=== PATIENT | female | born 1960 | race Two or more races ===

== ENCOUNTER 2023-04-13 06:30 | Day surgery (SDC) | payer OTHER ==
[~2023-04-13] VITALS: Ht 154.9 cm; Wt 80.7 kg
[~2023-04-13 06:30] MED LIST: GLUMETZA500 MG PO; LOSARTAN-HCTZ1 EAC1 PO; SYNTHROID88 MCG PO
== END 2023-04-13 18:20 | disposition home or self-care (01) ==
LOC: CIR.AMB 06:30
PROVIDERS: ATTEND Surgery
DX: C50.411 Malignant neoplasm of upper-outer quadrant of right female breast (principal); I10 Essential (primary) hypertension; Z20.822 Contact with and (suspected) exposure to COVID-19
CPT/HCPCS: 19281; 19301; 38525; 38792; L8699

== ENCOUNTER 2023-04-17 08:51 | Emergency (ER) | payer OTHER ==
[~2023-04-17] VITALS: Ht 154.9 cm; Wt 80.7 kg
[2023-04-17] MEDS ORDERED: NORFLEX100MG PO (12:45)
[2023-04-17] MEDS ORDERED: DICLOFENAC POTA50 MG PO (12:45)
== END 2023-04-17 12:54 | disposition home or self-care (01) ==
LOC: ER 08:51
DX: M25.511 Pain in right shoulder (principal); Z85.3 Personal history of malignant neoplasm of breast; E11.9 Type 2 diabetes mellitus without complications; Z79.84 Long term (current) use of oral hypoglycemic drugs; E78.00 Pure hypercholesterolemia, unspecified; I10 Essential (primary) hypertension